=== PATIENT | male | born 1950 | race Caucasian/White ===

== ENCOUNTER 2020-12-20 08:35 | Outpatient (REF) | payer BC, SELFPAY ==
--- NOTE | ~2020-12-20 | US_ITS ---
EXAMINATION: US RETROPERITONEAL LIMITED (AORTA) CLINICAL INFORMATION: Evaluate for abdominal aortic aneurysm. COMPARISON: None TECHNIQUE: Soliman-scale, color Doppler and spectral Doppler evaluation of the abdominal aorta. FINDINGS: The aorta is normal. The measurements of the aorta in maximum AP and transverse dimensions respectively are as follows: Proximal: 2.0 x 2.0 cm. Mid: 2.1 x 2.6 cm. Distal: 2.1 x 2.6 cm. PSV: 85.5 cm/sec The measurements of the common iliac arteries in maximum dimensions are as follows: Right: AP: 1.5 cm. TRV: 1. cm. Left: AP: 1.5 cm. TRV: 1.8 cm. US/US abdominal aortic aneurysm IMPRESSION: No abdominal aortic or iliac artery aneurysm.
== END 2020-12-20 08:36 | disposition home or self-care (01) ==
LOC: HO.US 08:35
PROVIDERS: PCP Internal Medicine; Visit Provider Internal Medicine
DX: Z87.891 Personal history of nicotine dependence (principal)
CPT/HCPCS: 76706

== ENCOUNTER 2021-05-27 09:15 | Outpatient (REF) | payer BC, SELFPAY ==
[2021-05-27 09:58] LABS: MANUAL DIFF FLAG NO
[2021-05-27 10:07] LABS: Basophils Percent Auto 0.2 % (0-2); Hematocrit 36.6 % (42-52); Hemoglobin 12.2 g/dl (14.0-18.0); Imm Gran Abs Auto 0.02 X10*3/uL (0.00-0.03); Imm Gran Pct Auto 0.2 % (0.0-0.4); Lymphocytes Absolute Auto 2.1 X10*3/uL (1.2-4.9); Lymphocytes Percent Auto 25.9 % (20-40); Mean Corpuscular HGB Conc 33.3 g/dl (31.0-36.0); Mean Corpuscular Volume 89.9 fL (80-98); Mean Platelet Volume 9.8 fL (9.4-12.4); Monocytes Absolute Auto 0.9 X10*3/uL (0.1-1.2); Monocytes Percent Auto 10.4 % (2-11); Neutrophils Absolute Auto 5.2 X10*3/uL (2.0-8.3); Neutrophils Percent Auto 63.3 % (45-73); Platelet Count 264 X10*3/uL (160-400); Red Blood Count 4.07 X10*6/uL (4.60-5.80); Red Cell Distribution Width 12.3 % (11.0-16.0); White Blood Count 8.3 X10*3/uL (4.8-10.8)
[2021-05-27 10:33] LABS: Alanine Aminotransferase 19 U/L (0-40); Albumin Level 4.3 g/dL (3.5-5.0); Alkaline Phosphatase 84 U/L (39-117); Anion Gap 11 (12-20); Aspartate Amino Transferase 19 U/L (5-37); Bilirubin Total 0.6 mg/dL (0.0-1.0); Blood Urea Nitrogen 20 mg/dL (9-16); Calcium 9.3 mg/dL (8.4-10.2); Carbon Dioxide 28 mmol/L (22-29); Chloride 104 mmol/L (96-108); Cholesterol 170 mg/dL; Estimated Glomerular Filt Rate 55; Glucose Fasting 94 mg/dL (60-99); HDL Cholesterol 44 mg/dL; LDL Cholesterol Calculated 94 mg/dl; Sodium 139 mmol/L (135-145); Total Protein 7.1 g/dL (6.5-8.0); Triglycerides 161 mg/dL
[2021-05-27 10:38] LABS: Thyroid Stimulating Hormone 1.78 uIU/mL (0.32-4.0)
[2021-05-29 04:14] LABS: Folate 11.2 ng/mL (> or = 4.0); Vitamin B12 561 pg/mL (200-900)
[2021-05-30 01:17] LABS: Thyroid Peroxidase Antibodies 1 IU/mL (<9)
[2021-05-30 18:17] LABS: Thyroglobulin Antibodies <1 IU/mL (< or = 1)
[2021-05-31 00:22] LABS: Intrinsic Factor Antibodies Negative (Negative)
[2021-06-01 15:36] LABS: Vitamin D 25-OH, D2 21 ng/mL; Vitamin D 25-OH, D3 16 ng/mL; Vitamin D 25-OH, Total 37 ng/mL (30-100)
[2021-06-06 11:51] LABS: Parietal Cell Antibody 84.4 Unit (<=20.0)
== END 2021-05-27 09:16 | disposition home or self-care (01) ==
LOC: HO.LAB 09:15
PROVIDERS: PCP Internal Medicine; Visit Provider Internal Medicine
DX: E55.9 Vitamin D deficiency, unspecified (principal); E53.8 Deficiency of other specified B group vitamins; E03.9 Hypothyroidism, unspecified; E78.5 Hyperlipidemia, unspecified; D64.9 Anemia, unspecified
CPT/HCPCS: 36415; 80053; 80061; 82306; 82607; 82746; 83516; 84443; 85025; 86340; 86376; 86800

== ENCOUNTER 2021-12-18 07:47 | Outpatient (REF) | payer BC, SELFPAY ==
[2021-12-18 09:29] LABS: Alanine Aminotransferase 18 U/L (0-40); Albumin Level 4.2 g/dL (3.5-5.0); Alkaline Phosphatase 85 U/L (39-117); Aspartate Amino Transferase 19 U/L (5-37); Bilirubin Direct 0.2 mg/dL (0.0-0.5); Bilirubin Total 0.6 mg/dL (0.0-1.0); Cholesterol 176 mg/dL; HDL Cholesterol 42 mg/dL; LDL Cholesterol Calculated 102 mg/dl; Total Protein 7.1 g/dL (6.5-8.0); Triglycerides 161 mg/dL
[2021-12-18 09:52] LABS: Thyroid Stimulating Hormone 2.29 uIU/mL (0.32-4.0)
[2021-12-18 10:42] LABS: Folate 13.4 ng/mL (> or = 4.0); Vitamin B12 670 pg/mL (200-900)
== END 2021-12-18 07:48 | disposition home or self-care (01) ==
LOC: HO.LAB 07:47
PROVIDERS: PCP Internal Medicine; Visit Provider Internal Medicine
DX: D51.0 Vitamin B12 deficiency anemia due to intrinsic factor deficiency (principal); E78.5 Hyperlipidemia, unspecified; E03.9 Hypothyroidism, unspecified
CPT/HCPCS: 36415; 80061; 80076; 82607; 82746; 84443

== ENCOUNTER 2022-04-27 07:55 | Outpatient (REF) | payer BC, SELFPAY ==
[2022-04-27 08:17] LABS: MANUAL DIFF FLAG NO
[2022-04-27 08:35] LABS: Basophils Percent Auto 0.3 % (0-2); Eosinophils Percent Auto 0.2 % (0-4); Hematocrit 34.8 % (42.0-52.0); Imm Gran Abs Auto 0.02 X10*3/uL (0.00-0.03); Imm Gran Pct Auto 0.3 % (0.0-0.4); Lymphocytes Absolute Auto 1.9 X10*3/uL (1.2-4.9); Lymphocytes Percent Auto 29.4 % (20-40); Mean Corpuscular HGB Conc 34.5 g/dl (31.0-36.0); Mean Corpuscular Hemoglobin 30.8 pg (27.0-33.0); Mean Corpuscular Volume 89.5 fL (80.0-98.0); Mean Platelet Volume 9.5 fL (9.4-12.4); Monocytes Absolute Auto 0.7 X10*3/uL (0.1-1.2); Monocytes Percent Auto 11.6 % (2-11); Neutrophils Absolute Auto 3.7 x10*3/uL (2.0-8.3); Neutrophils Percent Auto 58.2 % (45-73); Platelet Count 252 X10*3/uL (160-400); Red Blood Count 3.89 X10*6/uL (4.60-5.80); Red Cell Distribution Width 12.3 % (11.0-16.0); White Blood Count 6.3 X10*3/uL (4.8-10.8)
[2022-04-27 09:14] LABS: Alanine Aminotransferase 14 U/L (0-40); Albumin Level 4.2 g/dL (3.5-5.0); Alkaline Phosphatase 86 U/L (39-117); Anion Gap 14 (12-20); Aspartate Amino Transferase 19 U/L (5-37); Bilirubin Total 0.8 mg/dL (0.0-1.0); Blood Urea Nitrogen 23 mg/dL (9-16); Calcium 9.3 mg/dL (8.4-10.2); Carbon Dioxide 28 mmol/L (22-29); Chloride 103 mmol/L (96-108); Cholesterol 176 mg/dL; Estimated Glomerular Filt Rate 50; Glucose Fasting 95 mg/dL (60-99); HDL Cholesterol 42 mg/dL; Iron 132 mcg/dL (45-160); LDL Cholesterol Calculated 105 mg/dl; Percent Iron Saturation 33 % (15-50); Sodium 141 mmol/L (135-145); Total Iron Binding Capacity 401 mcg/dL (228-428); Total Protein 7.2 g/dL (6.5-8.0); Triglycerides 146 mg/dL; Unsaturated Iron Binding 269 ug/dL
[2022-04-27 09:22] LABS: Thyroid Stimulating Hormone 2.16 uIU/mL (0.32-4.0); Vitamin D 25-OH Total 26.8 ng/mL (>30)
[2022-04-27 09:30] LABS: Folate 13.9 ng/mL (> or = 4.0); Vitamin B12 552 pg/mL (200-900)
== END 2022-04-27 07:56 | disposition home or self-care (01) ==
LOC: HO.LAB 07:55
PROVIDERS: PCP Internal Medicine; Visit Provider Internal Medicine
DX: E78.5 Hyperlipidemia, unspecified (principal); D51.0 Vitamin B12 deficiency anemia due to intrinsic factor deficiency; D64.9 Anemia, unspecified; E03.9 Hypothyroidism, unspecified; E55.9 Vitamin D deficiency, unspecified
CPT/HCPCS: 36415; 80053; 80061; 82306; 82607; 82746; 83540; 84443; 85025

== ENCOUNTER 2023-01-05 08:20 | Outpatient (REF) | payer MEDICARE, SELFPAY ==
[2023-01-05 10:33] LABS: Alanine Aminotransferase 16 U/L (0-40); Albumin Level 4.1 g/dL (3.5-5.0); Alkaline Phosphatase 86 U/L (39-117); Anion Gap 13 (12-20); Aspartate Amino Transferase 22 U/L (5-37); Bilirubin Total 0.6 mg/dL (0.0-1.0); Blood Urea Nitrogen 20 mg/dL (9-16); Calcium 9.2 mg/dL (8.4-10.2); Carbon Dioxide 27 mmol/L (22-29); Chloride 105 mmol/L (96-108); Cholesterol 167 mg/dL; Estimated Glomerular Filt Rate 54; Glucose Fasting 96 mg/dL (60-99); HDL Cholesterol 42 mg/dL; Sodium 141 mmol/L (135-145); Total Protein 6.8 g/dL (6.5-8.0)
[2023-01-05 10:38] LABS: Folate 16.2 ng/mL (> or = 4.0); Thyroid Stimulating Hormone 2.13 uIU/mL (0.32-4.0); Vitamin B12 657 pg/mL (200-900)
[2023-01-09 16:09] LABS: Triglycerides 95 mg/dL
[2023-01-09 16:10] LABS: LDL Cholesterol Calculated 106 mg/dl
== END 2023-01-05 08:21 | disposition home or self-care (01) ==
LOC: HO.LAB 08:20
PROVIDERS: PCP Internal Medicine; Visit Provider Internal Medicine
DX: E53.8 Deficiency of other specified B group vitamins (principal); I10 Essential (primary) hypertension; E03.9 Hypothyroidism, unspecified; E78.5 Hyperlipidemia, unspecified
CPT/HCPCS: 36415; 80053; 80061; 82607; 82746; 84443

== ENCOUNTER 2023-05-11 07:56 | Outpatient (REF) | payer MEDICARE, SELFPAY ==
[2023-05-11 09:15] LABS: Anion Gap 15 (12-20)
[2023-05-11 09:43] LABS: Folate 12.1 ng/mL (> or = 4.0); Vitamin B12 1024 pg/mL (200-900)
[2023-05-11 10:37] LABS: Alanine Aminotransferase 14 U/L (0-40); Albumin Level 4.2 g/dL (3.5-5.0); Alkaline Phosphatase 91 U/L (39-117); Aspartate Amino Transferase 18 U/L (5-37); Bilirubin Total 0.5 mg/dL (0.0-1.0); Blood Urea Nitrogen 23 mg/dL (9-16); Calcium 9.6 mg/dL (8.4-10.2); Carbon Dioxide 24 mmol/L (22-29); Chloride 105 mmol/L (96-108); Cholesterol 174 mg/dL (<200); Estimated Glomerular Filt Rate 59; Glucose Fasting 94 mg/dL (60-99); HDL Cholesterol 45 mg/dL (>40); LDL Cholesterol Calculated 94 mg/dL (<100); Potassium 3.7 mmol/L (3.3-5.1); Sodium 140 mmol/L (135-145); Thyroid Stimulating Hormone 1.76 uIU/mL (0.32-4.0); Total Protein 7.4 g/dL (6.5-8.0); Triglycerides 177 mg/dL (<150)
== END 2023-05-11 07:57 | disposition home or self-care (01) ==
LOC: HO.LAB 07:56
PROVIDERS: PCP Internal Medicine; Visit Provider Internal Medicine
DX: I10 Essential (primary) hypertension (principal); E53.8 Deficiency of other specified B group vitamins; E78.5 Hyperlipidemia, unspecified; E03.9 Hypothyroidism, unspecified
CPT/HCPCS: 36415; 80053; 80061; 82607; 82746; 84443

== ENCOUNTER 2023-05-14 16:38 | Outpatient (AMB) | payer MEDICARE, SELFPAY ==
--- NOTE | 2023-05-14 16:45 | A.OFFPC_ITS ---
Vital Signs 05/14/23 16:46 Height 5 ft 10 in Weight 197 lb BMI 28.3 BP 122/66 Blood Pressure Location Lt brachial Position Sitting Pulse 75 Pulse Source Pulse Oximeter Pulse Oximetry (%) 97 Oxygen Delivery Method Room Air Intake Visit Reasons: lipids Intake Note: Pt is here for F/U [employer] Required: No Accompanied by: Spouse Allergies penicillin G Allergy (Intermediate, Verified 05/14/23 17:06) rash Medication List - Last Reconciled 05/14/23 by Jeanie Sparrow MD acetaminophen ER 650 mg PO Q8H PRN 30 days chlorthalidone 25 mg PO DAILY 90 days cyanocobalamin (vitamin B-12) 1,000 mcg PO DAILY 90 days levothyroxine 75 mcg PO DAILY 90 days lisinopril 10 mg PO DAILY 90 days metoprolol succinate ER 50 mg PO DAILY omega-3 fatty acids-fish oil 300-1,000 mg 1 cap PO BID simvastatin 40 mg PO BEDTIME 90 days Tobacco use date assessed: 11/14/21 Fall risk assessment: No Falls in past year Last assessed Fall Risk: 05/14/23 Dental Screening Dental Screen Date: 05/14/23 Did you have a dental visit in the last 12 months?: Yes Did you have a dental problem in the last 6 months where you did not have access to dental care?: No Was dental information given to patient?: Patient has dentist HPI HPI Comments History of Present Illness Details This is a 73-year-old male with hypertension, dyslipidemia, hypothyroi dism and pernicious anemia that comes today for follow-up on his conditions accompanied by . Blood pressure stable. Cholesterol well control. TSH normal. Vitamin B12 is elevated and I recommended to take supplement once a week. No chest pain or shortness of breath. [facility] Medical History B12 deficiency Dyslipidemia Essential hypertension Former smoker Hypothyroidism Hypovitaminosis D Pernicious anemia Skin tag Surgical History H/O craniotomy S/P nerve repair Family History Mother Diabetes Father No problems noted. Social History Housing: House Alcohol intake: current Alcohol intake frequency: holidays/special occasions only Alcohol type: hard liquor Patient Tobacco Use Status: Former Tobacco user (40 years ago) Tobacco use type: Cigarette e-Cigarette/Vaping Use: Never Used Second Hand Smoke Exposure: No service: No Current occupational status: employed Current occupational exposures/hazards: No Cognitive needs: No Hearing needs: No Vision needs: Yes Questionnaire Thrive Questionnaire Date Thrive assessed: 01/09/23 LEEANNA-7 AMB Questionnaire LEEANNA-7 Date LEEANNA - 7 assessed: 01/09/23 Source: Developed by Drs. Laci Martinez, Raina Hudson, Miles Beaver and colleagues, with an educational lay from [employer]. Review of Systems Const All systems reviewed & are unremarkable except as noted in HPI and below Eyes Reports no additional complaints, Denies change in vision and Denies other visual disturbances Card Denies chest pain at rest, Denies chest pain with activity, Denies edema, Denies irregular heart rhythm, Denies claudication, Denies dyspnea, Denies dyspnea on exertion, Denies orthopnea, Denies paroxysmal nocturnal dyspnea and Denies slow heart rate Resp Denies cough, Denies dyspnea and Denies dyspnea on exertion GI Denies abdominal pain, Denies change in bowel habits, Denies excessive flatus, Denies nausea and Denies vomiting Denies urinary hesitancy, Denies urinary incontinence and Denies urinary urgency Musc Denies abnormal gait, Denies atrophy, Denies deformity and Denies limited range of motion Skin/Breast Denies bleeding lesions, Denies changing lesions and Denies rash Neuro Denies abnormal gait and Denies lack of coordination Physical exam (Primary Care) Vital Signs: Last Vital Signs Pulse 75 05/14/23 16:46 BP 122/66 05/14/23 16:46 Pulse Ox 97 05/14/23 16:46 Oxygen Delivery Method Room Air 05/14/23 16:46 BMI result Body Mass Index 28.3 Tobacco/Smoking Status: Tobacco use Status Tobacco use date assessed 11/14/21 05/14/23 16:46 Patient Tobacco Use Status Former Tobacco user (40 05/14/23 16:46 years ago) Tobacco use type Cigarette 05/14/23 16:46 e-Cigarette/Vaping Use Never Used 05/14/23 16:46 Thrive Assessment: Date of Thrive Assessment Date Thrive assessed 01/09/23 05/14/23 16:46 Eyes General: appearance normal, both eyes and all related structures Eyelids: Yes eyelids normal Conjunctivae: conjunctivae normal Neck Neck: Yes normal visual inspection and Yes supple Resp Effort & Inspection: normal respiratory effort Auscultation: clear to auscultation bilaterally Cardio Jugular venous distension: no JVD Rate: regular rate Rhythm: regular rhythm Heart sounds: S1 normal heart sound present and S2 normal heart sound present Extrem General: Yes full ROM Assessment and Plan Assessment & Plan (1) Essential hypertension: Code(s): I10 - Essential (primary) hypertension Plan: Continue lisinopril and chlorthalidone. Blood pressure goal is equal or less than 130/80. (2) Hypothyroidism: Code(s): E03.9 - Hypothyroidism, unspecified Qualifiers: Hypothyroidism type: unspecified Qualified Code(s): E03.9 - Hypothyroidism, unspecified Plan: Continue levothyroxine. (3) Dyslipidemia: Code(s): E78.5 - Hyperlipidemia, unspecified Plan: Continue statins. (4) Pernicious anemia: Code(s): D51.0 - Vitamin B12 deficiency anemia due to intrinsic factor deficiency Plan: Take vitamin B12 supplements once a week. Coding Level of Care Code Est Pt Level 4 (31509) Diagnoses Essential hypertension I10 Hypothyroidism E03.9 Hypothyroidism type: unspecified Dyslipidemia E78.5 Pernicious anemia D51.0 Time Spent (min) 24
[2023-05-14 16:46] VITALS: BP 122/66; PULSE 75; O2SAT 97; BMI 28.3
== END 2023-05-14 17:17 | disposition home or self-care (01) ==
PROVIDERS: PCP Internal Medicine; Visit Provider Internal Medicine
DX: I10 Essential (primary) hypertension (principal); E03.9 Hypothyroidism, unspecified; E78.5 Hyperlipidemia, unspecified; D51.0 Vitamin B12 deficiency anemia due to intrinsic factor deficiency
CPT/HCPCS: 99214